=== PATIENT | female | born 1950 | race Caucasian/White ===

== ENCOUNTER 2019-10-28 08:38 | Outpatient (CLI) | payer OTHER, SELFPAY ==
--- NOTE | ~2019-10-28 | MM_ITS ---
EXAMINATION: MM screening beatriz BI w rosa HISTORY: Screening mammogram TECHNIQUE: Craniocaudal and mediolateral oblique 3-D tomosynthesis images were obtained and synthetic 2-D images were generated. CAD analysis was submitted and interpreted. COMPARISON: 10/25/2018, 10/20/2017, 10/14/2016 bilateral digital screening mammogram examinations BREAST PARENCHYMAL COMPOSITION: The breasts are almost entirely fatty. FINDINGS: There is no evidence of suspicious mass, calcification, or architectural distortion to sugg est malignancy in either breast. There has been no suspicious interval change. IMPRESSION: 1. No mammographic evidence of malignancy. 2. Recommend routine screening mammography in one year. BI-RADS Category 1: Negative Reviewed, dictated and finalized at location A. T PRESS OPERATOR
== END 2019-10-28 08:39 | disposition home or self-care (01) ==
LOC: ANHIMG 08:40
PROVIDERS: PCP Internal Medicine; Visit Provider Obstetrics & Gynecology
DX: Z12.31 Encounter for screening mammogram for malignant neoplasm of breast (principal)
CPT/HCPCS: 77063; 77067

== ENCOUNTER → 2020-12-24 14:07 | Outpatient (CLI) | payer OTHER, SELFPAY ==
--- NOTE | ~2020-12-24 | XR_ITS ---
EXAMINATION: XR knee LT 3V DATE: 12/24/2020 14:47 INDICATION: Left knee osteoarthritis. TECHNIQUE: 3 views of left knee were obtained. COMPARISON: None. FINDINGS: Bone alignment is normal. No fracture. There is mild tricompartmental osteoarthritis. There is a small knee joint effusion. IMPRESSION: 1. Mild left knee osteoarthritis. 2. Small left knee joint effusion. Reviewed, dictated and finalized at location A.
--- NOTE | ~2020-12-24 | XR_ITS ---
EXAMINATION: XR knee RT 3V DATE: 12/24/2020 14:46 INDICATION: Right knee osteoarthritis. TECHNIQUE: 3 views of right knee were obtained. COMPARISON: None. FINDINGS: Bone alignment is normal. No fracture. There is mild osteoarthritis of medial and patellofe moral compartments characterized by tiny marginal osteophytes. No knee joint effusion. IMPRESSION: 1. Mild right knee osteoarthritis. Reviewed, dictated and finalized at location A.
== END ==
PROVIDERS: PCP Internal Medicine; Visit Provider Internal Medicine
DX: M17.0 Bilateral primary osteoarthritis of knee (principal); M25.462 Effusion, left knee
CPT/HCPCS: 73562

== ENCOUNTER 2021-01-13 08:54 | Outpatient (CLI) | payer OTHER, SELFPAY ==
--- NOTE | ~2021-01-13 | MM_ITS ---
EXAMINATION: MM screening beatriz BI w rosa HISTORY: Screening mammogram TECHNIQUE: Craniocaudal and mediolateral oblique 3-D tomosynthesis images were obtained and synthetic 2-D images were generated. CAD analysis was submitted and interpreted. COMPARISON: 10/28/2019, 10/25/2018, 10/20/2017 bilateral digital screening mammogram examinations BREAST PARENCHYMAL COMPOSITION: There are scattered areas of fibroglandular density. FINDINGS: There is no evidence of suspicious mass, calcification, or architectural distortion to sugg est malignancy in either breast. There has been no suspicious interval change. IMPRESSION: 1. No mammographic evidence of malignancy. 2. Recommend routine screening mammography in one year. BI-RADS Category 1: Negative Reviewed, dictated and finalized at location A.
== END 2021-01-13 08:55 | disposition home or self-care (01) ==
LOC: ANHIMG 08:57
PROVIDERS: PCP Internal Medicine; Visit Provider Obstetrics & Gynecology
DX: Z12.31 Encounter for screening mammogram for malignant neoplasm of breast (principal)
CPT/HCPCS: 77063; 77067

== ENCOUNTER → 2021-10-08 08:52 | Outpatient (CLI) | payer OTHER, SELFPAY ==
[2021-10-08 16:27] LABS: Influenza A QL RT-PCR Negative (Negative); Influenza B QL RT-PCR Negative (Negative); SARS-CoV-2 RNA PCR Positive
== END ==
PROVIDERS: PCP Internal Medicine; Visit Provider Internal Medicine
DX: J06.9 Acute upper respiratory infection, unspecified (principal); U07.1 COVID-19
CPT/HCPCS: 87502; C9803; U0003; U0005

== ENCOUNTER 2022-06-29 08:27 | Outpatient (CLI) | payer OTHER, SELFPAY ==
--- NOTE | ~2022-06-29 | MM_ITS ---
EXAMINATION: MM screening beatriz BI w rosa HISTORY: Screening TECHNIQUE: Craniocaudal and mediolateral oblique 3-D tomosynthesis images were obtained and synthetic 2-D images were generated. CAD analysis was submitted and interpreted. COMPARISON: Comparison to multiple prior studies sequentially, with oldest reviewed study dated 10/12. BREAST PARENCHYMAL COMPOSITION: Breast composed of scattered areas of fibroglandular density FINDINGS: There is no evidence of suspicious mass, calcification, or architectural distortion to sugg est malignancy in either breast. There has been no suspicious interval change. IMPRESSION: 1. No mammographic evidence of malignancy. 2. Recommend routine screening mammography in one year. BI-RADS Category 1: Negative Reviewed, dictated and finalized at location A.
== END 2022-06-29 08:28 | disposition home or self-care (01) ==
PROVIDERS: PCP Internal Medicine; Visit Provider Obstetrics & Gynecology
DX: Z12.31 Encounter for screening mammogram for malignant neoplasm of breast (principal)
CPT/HCPCS: 77063; 77067

== ENCOUNTER 2024-05-24 09:59 | Outpatient (CLI) | payer OTHER, SELFPAY ==
--- NOTE | ~2024-05-24 | CT_ITS ---
Non-contrast Head CT History: Memory impairment Technique: Axial non-contrast imaging of the brain was performed. Dose reduction technique was used on this scan by utilizing automated exposure control and iterative reconstruction technique. The dose -length product (DLP) was 599.57 mGy-cm. Findings: There is an acute right cerebral convexity subdural hematoma measuring up to 5-6 mm in maxi mal thickness. No mass effect or midline shift. Suspected minimal late subacute to chronic left cereb ral convexity subdural hematoma. Brain parenchyma appears normal. The ventricles and subarachnoid sp aces are normal in size. The calvarium appears normal. The visualized paranasal sinuses and mastoid air cells are clear. Impression: Acute right cerebral convexity subdural hematoma measuring 5-6 mm in maximal thickness. Probable very small late subacute to possibly chronic left frontal convexity subdural hematoma. Case discussed with Dr. Scott at the time of this reading. Reviewed, dictated and finalized at [facility]. Impression: Acute right cerebral convexity subdural hematoma measuring 5-6 mm in maximal th ickness. Probable very small late subacute to possibly chronic left frontal convexity velarde bdural hematoma. Case discussed with Dr. Scott at the time of this reading.
== END 2024-05-24 10:00 | disposition home or self-care (01) ==
PROVIDERS: PCP Family Medicine; Visit Provider Family Medicine
DX: R41.3 Other amnesia (principal); E55.9 Vitamin D deficiency, unspecified; E78.5 Hyperlipidemia, unspecified; M19.90 Unspecified osteoarthritis, unspecified site; Z00.00 Encounter for general adult medical examination without abnormal findings; Z79.899 Other long term (current) drug therapy
CPT/HCPCS: 36415; 70450

== ENCOUNTER 2024-05-24 11:21 | Emergency (ER) | payer OTHER, SELFPAY ==
[2024-05-24] VITALS (7 sets, daily range): BP systolic 111–144; BP diastolic 61–88; PULSE 62–75; RESP 16–20; TEMP 36.1; O2SAT 95–97
--- NOTE | ~2024-05-24 | CT_ITS ---
EXAMINATION: CT brain wo con DATE: 05/24/2024 13:41 INDICATION: Subdural hematoma TECHNIQUE: Computed tomography (CT) of the head was performed without intravenous contrast. Sagittal and coronal reconstructions were performed. The mA was adjusted according to patient size. Iterative reconstruction technique was employed. The dose-length product was 605.33 mGy-cm. COMPARISON: head CT dated 05/24/2024 FINDINGS: No interval change in small bilateral frontal subdural hematomas likely acute on subacute or chronic with small amount of higher attenuation more recent blood dependently on the right and minimally on t he left. The right subdural hematoma measures up to 6 mm in maximal thickness in the left subdural he matoma measures up to 3 mm in thickness. No acute infarct. Ventricles are normal and symmetric. No ma ss/mass effect. Changes of bilateral intraocular lens replacement. The orbits, paranasal sinuses and mastoid air cells are normal. IMPRESSION: 1. No interval change in bilateral small frontal, likely acute on subacute or chronic subdural hemato mas. Reviewed, dictated and finalized at location A. IMPRESSION: 1. No interval change in bilateral small frontal, likely acute on subacute or c hronic subdural hematomas.
--- NOTE | ~2024-05-24 | XR_ITS ---
EXAMINATION: XR chest 1V portable 05/24/2024 12:09 INDICATION: Subdural hematoma PROCEDURE: AP portable chest COMPARISON: No prior studies for comparison. FINDINGS: The lungs are clear. The cardiomediastinal silhouette is within normal limits. There are no pleural effusions. There is no pneumothorax suspected. IMPRESSION: 1: NO ACUTE CARDIOPULMONARY DISEASE. Reviewed, dictated and finalized at location B.
[2024-05-24 12:01] LABS: Basophils Absolute Auto 0.1 K/mm3 (0.0-0.1); Basophils Percent Auto 1.4 % (0.2-1.2); Eosinophils Absolute Auto 0.1 K/mm3 (0-0.3); Eosinophils Percent Auto 1.8 % (0-4.4); Hematocrit 43.8 % (37.0-47.0); Hemoglobin 14.5 g/dL (12.0-15.0); Immature Granulocyte Absolute 0.02 K/mm3 (0.00-0.031); Immature Granulocyte Percent A 0.4 % (0-0.5); Lymphocytes Absolute Auto 1.14 K/mm3 (0.9-3.2); Lymphocytes Percent Auto 20.5 % (18.3-44.2); Mean Corpuscular HGB Conc 33.1 g/dl (32-36); Mean Corpuscular Hemoglobin 32.8 pg (26-34); Mean Corpuscular Volume 99.1 fl (80-100); Mean Platelet Volume 10.6 fl (7.4-10.4); Monocytes Absolute Auto 0.4 K/mm3 (0.1-0.6); Monocytes Percent Auto 7.2 % (2.6-8.5); Neutrophils Absolute Auto 3.8 K/mm3 (1.3-6.7); Neutrophils Percent Auto 68.7 % (45.5-73.1); Platelet Count Result 266 k/mm3 (150-375); Red Blood Count 4.42 M/mm3 (4.2-5.4); Red Cell Distribution Width 14.6 % (11.5-14.5); White Blood Count 5.6 K/mm3 (4.5-10.0)
[2024-05-24 12:13] LABS: Partial Thromboplastin Time 27.8 Seconds (22.3-36.8); Prothrombin Time 13.7 Seconds (11.1-14.7)
[2024-05-24 12:14] LABS: Alanine Aminotransferase 33 U/L (6-35); Albumin Level 4.2 g/dL (3.5-5.1); Alkaline Phosphatase 82 U/L (38-126); Anion Gap 9 mmol/L (4-12); Aspartate Amino Transferase 35 U/L (14-36); Bilirubin,Total 0.8 mg/dL (0.2-1.3); Blood Urea Nitrogen 13 mg/dL (7-17); Calcium 9.6 mg/dL (8.4-10.2); Carbon Dioxide 26 mmol/L (22-30); Chloride 102 mmol/L (98-107); Estimated CRCL calculation 54 ml/min; Estimated Glomerular Filt Rate > 60; Glucose 94 mg/dL (65-110); Potassium 4.2 mmol/L (3.4-5.0); Sodium 137 mmol/L (137-145)
[2024-05-24 12:25] LABS: Troponin I < 0.012 ng/mL (0.000-0.034)
--- NOTE | 2024-05-24 14:19 | PC.NURSE ---
[facility] accepted as ed to ed transfer [facility] accepted eta [id number] trip [id number]
--- NOTE | 2024-05-24 20:11 | ED.NEUROSD ---
HPI - Neuro Symptoms/Deficit General Chief Complaint: Neuro Symptoms/Deficit Stated Complaint: sent by pcp for CT scan brain Time Seen by Provider: 05/24/24 12:39 History of Present Illness HPI Narrative: this is a 73-year-old female with a past medical history significant for hypertension, memory issues being worked up for potential dementia. she presents today from her primary care referral for concerns of an outpatient CT scan that showed an acute subdural hematoma on the right side as well as the subacute subdural hematoma on the left side. patient is a very poor historian is not sure if she had any kind of injuries but does states she feels she fell or sustained some kind of head trauma recently. she does endorse drinking significant amounts of alcohol between 2 glasses of wine and a full bottle of wine occasionally at night. patient does not take any anticoagulation medications such as aspirin Plavix or other anticoagulation. she states that aside from some brain fog and some word-finding difficulty she has no headache right now, no nausea, vomiting, abdominal pain, weakness, fatigue, neurological complaints or sensory deficits. Has no obvious evidence of head trauma. Did not have any neck pain or difficulty with ranging of her neck. Related Data Home Medications Medication Instructions Recorded Confirmed omega-3 fatty acids 1,000 mg 1,000 mg PO DAILY 02/02/21 04/02/24 capsule (Fish Oil Concentrate) Allergies Allergy/AdvReac Type Severity Reaction Status Date / Time No Known Allergies Allergy Verified 04/02/24 10:02 Review of Systems Review of Systems: As reviewed above in HPI [facility] Past Medical History Medical History Allergic rhinitis Degenerative arthritis of knee, bilateral Nasal polyp Surgical History Surgical History History of repair of right rotator cuff 2016 Social History Social History Smoking packs per day: 1 Smoking cigarettes per day: 20.0 Years smoked: 30 Smoking pack-years: 30.00 Smoking status: Former smoker Tobacco type: cigarettes Second hand tobacco smoke exposure: No Smoking end date: 09/18/99 Alcohol intake: current Drinks per week: 8 Alcohol use details: wine Substance use: never Substance use type: does not use Lack of Transportation: No Lack of Food: Never True Current Housing: I Have Housing Concerned About Future Housing: No Difficulty Paying Gas/Electric Bills: No Difficulty Paying for Meds: No Currently Unemployed: No Education: Trade/Vocational Certificate Difficulty w/ Childcare or Family Care: No Exam Narrative: GENERAL: [Well-appearing, well-nourished, and in no acute distress.] HEAD: [Normocephalic, atraumatic.] EYES: [PERRLA and EOMI.] ENT: Nares clear, no rhinorrhea or epistaxis. Mucous membranes moist. NECK: Supple. CHEST: [Clear to auscultation. No respiratory distress.] HEART: [Regular rate and rhythm]. No murmur heard. [Normal peripheral pulses.] ABDOMEN: [Soft, nondistended], [nontender], [No rigidity or guarding] EXTREMITIES: Normal range of motion. [No edema.] SKIN: Warm, dry, no rash. NEURO: [No focal deficits]. Alert and oriented x2. normal motor function, normal sensation, no ataxia in the upper or lower extremities. States she has subjective word-finding difficulty but no other acute neurological complaints PSYCH: [Normal mood and affect.] Course Vital Signs Vital signs: Vital Signs Temperature 36.1 C L 05/24/24 11:26 Pulse Rate 72 05/24/24 11:26 Respiratory Rate 16 05/24/24 11:26 Blood Pressure 144/64 H 05/24/24 11:26 Pulse Oximetry 95 05/24/24 11:26 Oxygen Delivery Room Air 05/24/24 11:26 Temperature 36.1 C L 05/24/24 11:26 Pulse Rate 62 05/24/24 15:00 Respir
== END 2024-05-24 15:00 | disposition short-term general hospital (02) ==
PROVIDERS: Emergency Provider Student in an Organized Health Care Education/Training Program; PCP Family Medicine
DX: S06.5XAA Traumatic subdural hemorrhage with loss of consciousness status unknown, initial encounter (principal); I10 Essential (primary) hypertension; Z87.891 Personal history of nicotine dependence
CPT/HCPCS: 36415; 70450; 71045; 80053; 84484; 85025; 85610; 85730; 99291

== ENCOUNTER 2024-06-11 14:26 | Emergency (ER) | payer OTHER, SELFPAY ==
--- NOTE | ~2024-06-11 | CT_ITS ---
EXAMINATION: CT brain wo con DATE: 06/11/2024 14:54 INDICATION: Head injury. TECHNIQUE: Computed tomography (CT) of the head was performed without intravenous contrast. The mA wa s adjusted according to patient size. Iterative reconstruction technique was employed. The dose-lengt h product was 681.00 mGy-cm. COMPARISON: Head CT 05/24/2024 FINDINGS: There are bilateral frontoparietal subdural hematomas measuring up to 3 mm in thickness on the right and up to 4 mm in thickness on the left. There is no acute ischemic infarct or abnormal mas s lesion. The ventricles are normal in size. The paranasal sinuses are clear. There are likely change s of ocular lens replacement surgeries. The mastoid air cells are normal. IMPRESSION: 1. Bilateral frontoparietal subdural hematomas with improvement on the right. Reviewed, dictated and finalized at location A.
[2024-06-11 14:32] VITALS: BP 135/76; PULSE 74; RESP 16; TEMP 36.4; O2SAT 97
[2024-06-11 17:18] VITALS: BP 155/75; PULSE 84; RESP 16; O2SAT 98
--- NOTE | 2024-06-11 17:48 | ED.HEATRA ---
HPI - Head Injury General Chief complaint: Head Injury Stated complaint: Fall 2 days ago Time Seen by Provider: 06/11/24 17:12 Related Data Home Medications Medication Instructions Recorded Confirmed omega-3 fatty acids 1,000 mg 1,000 mg PO DAILY 02/02/21 04/02/24 capsule (Fish Oil Concentrate) Allergies Allergy/AdvReac Type Severity Reaction Status Date / Time No Known Allergies Allergy Verified 06/18/24 10:31 Review of Systems Review of Systems: All systems reviewed & are unremarkable except as noted in HPI and below PMFSH Past Medical History Medical History Allergic rhinitis Degenerative arthritis of knee, bilateral Nasal polyp Surgical History Surgical History History of repair of right rotator cuff 2016 Social History Social History Smoking packs per day: 1 Smoking cigarettes per day: 20.0 Years smoked: 30 Smoking pack-years: 30.00 Smoking status: Former smoker Tobacco type: cigarettes Second hand tobacco smoke exposure: No Smoking end date: 09/18/99 Alcohol intake: current Drinks per week: 8 Alcohol use details: wine Substance use: never Substance use type: does not use Lack of Transportation: No Lack of Food: Never True Current Housing: I Have Housing Concerned About Future Housing: No Difficulty Paying Gas/Electric Bills: No Difficulty Paying for Meds: No Currently Unemployed: No Education: Trade/Vocational Certificate Difficulty w/ Childcare or Family Care: No Exam Narrative: GENERAL: Well appearing, well-nourished, non-toxic, in no acute distress. HEAD: Normocephalic, atraumatic. NECK: Supple. No adenopathy, no masses. RESPIRATORY: Airway patent, respirations nonlabored. Clear to auscultation bilaterally, no rales, rhonchi, wheezing. CARDIOVASCULAR: Regular rate and rhythm without murmurs, rubs, or gallops. Peripheral pulses 2+ and equal bilaterally. ABDOMINAL: Soft, nontender, nondistended, no hepatosplenomegaly. Normoactive BS. MUSCULOSKELETAL: Moves all extremities. Strength/ROM intact without gross deformities. SKIN: Warm, dry, normal color. No rashes. NEURO: A&O X3. Speech clear. Cranial nerves II-XII grossly intact. No ataxic movements. PSYCHIATRIC: Appropriate mood and affect. Normal interaction. Course Vital Signs Vital signs: Vital Signs Temperature 36.4 C 06/11/24 14:32 Pulse Rate 74 06/11/24 14:32 Respiratory Rate 16 06/11/24 14:32 Blood Pressure 135/76 06/11/24 14:32 Pulse Oximetry 97 06/11/24 14:32 Temperature 36.4 C 06/11/24 14:32 Pulse Rate 84 06/11/24 17:18 Respiratory Rate 16 06/11/24 17:18 Blood Pressure 155/75 H 06/11/24 17:18 Pulse Oximetry 98 06/11/24 17:18 Discharge Plan Discharge Clinical Impression: Headache, Closed head injury Patient Disposition: Left Against Medical Advice Condition: Guarded Prognosis Instructions: Head Injury (ED) Prescriptions: No Action omega-3 fatty acids [Fish Oil Concentrate] 1,000 mg capsule 1,000 mg PO DAILY fluticasone propionate [Flonase Allergy Relief] 50 mcg/actuation spray,suspension 1 spray intranasal BID Qty: 16 3RF Rx Instructions: administer into each nostril donepezil 10 mg tablet 10 mg PO QHS Qty: 90 0RF ipratropium bromide 21 mcg (0.03 %) spray,non-aerosol 2 spray intranasal BID Qty: 30 0RF Rx Instructions: administer into each nostril amoxicillin-pot clavulanate 875-125 mg tablet 1 tablet PO BID Qty: 10 0RF prednisone 20 mg tablet 20 mg PO DAILY Qty: 5 0RF rosuvastatin 10 mg tablet See Rx Instructions .ROUTE .COMPLEX Qty: 90 1RF Dose Instruction: TAKE 1 TABLET BY MOUTH DAILY Rx Instructions: TAKE 1 TABLET BY MOUTH DAILY valacyclovir 1 gram tablet Se
--- NOTE | 2024-06-11 17:48 | ED.HEATRA ---
HPI - Head Injury General Chief complaint: Head Injury Stated complaint: Fall 2 days ago Time Seen by Provider: 06/11/24 17:12 Source: patient Mode of arrival: ambulatory Limitations: no limitations History of Present Illness HPI Narrative: Patient a 73-year-old female who presents to the ER after hitting her head 3-4 days ago. She reports she came in to this ER about a week ago after a head injury and was diagnosed with a bilateral subdural hematoma. Patient was transferred down to [place] ER, given anti epileptic medication, and discharged home. She reports she hit her head 3-4 days ago without loss of consciousness. Yesterday and today her head has felt heavy and sore, she endorses a ?minor headache.? She also endorses left eye heaviness, shortness but denies dizziness, nausea, vomiting or lightheadedness. Patient reports she was not seen by a neurosurgeon at [place] in the ER. She denies any other symptoms and reports she would like to go home. Related Data Home Medications Medication Instructions Recorded Confirmed omega-3 fatty acids 1,000 mg 1,000 mg PO DAILY 02/02/21 04/02/24 capsule (Fish Oil Concentrate) Allergies Allergy/AdvReac Type Severity Reaction Status Date / Time No Known Allergies Allergy Verified 06/18/24 10:31 [facility] Past Medical History Medical History Allergic rhinitis Degenerative arthritis of knee, bilateral Nasal polyp Surgical History Surgical History History of repair of right rotator cuff 2016 Social History Social History Smoking packs per day: 1 Smoking cigarettes per day: 20.0 Years smoked: 30 Smoking pack-years: 30.00 Smoking status: Former smoker Tobacco type: cigarettes Second hand tobacco smoke exposure: No Smoking end date: 09/18/99 Alcohol intake: current Drinks per week: 8 Alcohol use details: wine Substance use: never Substance use type: does not use Lack of Transportation: No Lack of Food: Never True Current Housing: I Have Housing Concerned About Future Housing: No Difficulty Paying Gas/Electric Bills: No Difficulty Paying for Meds: No Currently Unemployed: No Education: Trade/Vocational Certificate Difficulty w/ Childcare or Family Care: No Course Vital Signs Vital signs: Vital Signs Temperature 36.4 C 06/11/24 14:32 Pulse Rate 74 06/11/24 14:32 Respiratory Rate 16 06/11/24 14:32 Blood Pressure 135/76 06/11/24 14:32 Pulse Oximetry 97 06/11/24 14:32 Temperature 36.4 C 06/11/24 14:32 Pulse Rate 84 06/11/24 17:18 Respiratory Rate 16 06/11/24 17:18 Blood Pressure 155/75 H 06/11/24 17:18 Pulse Oximetry 98 06/11/24 17:18 MDM - Head Injury MDM Narrative Medical decision making narrative: Patient a 73-year-old female who presents to the ER after hitting her head 3-4 days ago. She reports she came in to this ER about a week ago after a head injury and was diagnosed with a bilateral subdural hematoma. Patient was transferred down to [place] ER, given anti epileptic medication, and discharged home. She reports she hit her head 3-4 days ago without loss of consciousness. Yesterday and today her head has felt heavy and sore, she endorses a ?minor headache.? She also endorses left eye heaviness, shortness but denies dizziness, nausea, vomiting or lightheadedness. Patient reports she was not seen by a neurosurgeon at [facility] in the ER. She denies any other symptoms and reports she would like to go home. 0-phone call placed to [facility] access for guidance on pt's care. 1899-Phone call has been placed to [facility] access line x 4 with no response. Pt verbalized she is leaving whether she's discharged or not. She is A&O x4. NURSING SPECIALIST explained to patient that she would need to leave against medical adv
== END 2024-06-11 19:13 | disposition left against medical advice (07) ==
LOC: ANHED 17:27
PROVIDERS: Emergency Provider Registered Nurse; PCP Family Medicine
DX: S09.90XA Unspecified injury of head, initial encounter (principal); M17.0 Bilateral primary osteoarthritis of knee; Z87.891 Personal history of nicotine dependence; W22.8XXA Striking against or struck by other objects, initial encounter
CPT/HCPCS: 70450; 99284

== ENCOUNTER 2025-07-23 01:30 | Day surgery (SDC) | payer OTHER, SELFPAY ==
--- OUTSIDE RECORDS SUMMARY | 2007-05-14 07:13 | XMS_ITS | Continuity of Care Document ---
Author Organization [facility] Address [address] [place] [address] Phone Care Team Providers Care Camera Operator Name Role Phone Robin Ramsay Unavailable Unavailable Procedures Procedure Date Office/outpatient Visit, Est Ophthalmoscopy, Subsequent Post-op Follow-up Visit Ophthalmoscopy, Subsequent Office Consultation Ophthalmoscopy Treatment Of Retina Advance Directives Directive Yes / No Effective Date File Name No Information Encounters Encounter Description Practice Location Reason(s) For Visit Diagnoses Date Provider Providers Copied on Encounter Office/outpati ent Visit, [facility] [address] [place] [address] [address], [place], [place], [id number], [place] tel:[phone] [facility] No Information Apr-2 7-200 7 Devendra Kelly. [address] [place], [place], [facility], [place]. tel:[phone] [facility], [address] [place] [address] [address], [place], [place], [id number], [place] tel:[phone] [facility] No Information Apr-1 3-200 7 Devendra Kelly. [address] [place], [address], [place]. tel:[phone] Office Consultation [facility], [address] [place] [address] [address], [place], [place], [id number], [place] tel:[phone] [facility] No Information Aug-0 6-200 7 Devendra Kelly. [address] [place], [address], [place]. tel:[phone] Referring Provider: Jus Bhandari OD, [address] [facility], [place], [address]. tel:[phone] Family History Family Member Type Diagnosis Age At Onset No Information Payers Payer name Insurance type Covered alliance party ID Authoriza tion(s) No Information Social History Type Description Quantity Date Captured Comments Sex Female Smoking Status No Information Chief Complaint And Reason For Visit No Information Reason For Referral Reason For Referral No Information History Of Present Illness Encounter Date Complaint History Of Prese nt Illness No Information Functional Status Date Functional Assessmen t No Information Instructions Date Instruction Additional Infor mation No Information Assessments Type Assessment Date No Information Patient Care Teams Name Effective Dates (start - stop) Status Members No Information
[2025-07-15 11:39] VITALS: BMI 26.3
[2025-07-23 08:15] VITALS: BP 111/74; PULSE 64; RESP 16; TEMP 36.6; O2SAT 96; BMI 26.4
[2025-07-23] MEDS: LACTATED RINGERS 1,000 ML 150 ML IV CONT (08:18)
--- NOTE | 2025-07-23 09:38 | PM.IMHP ---
H&P: HPI History of Present Illness Date/Time: 07/23/25 09:38 Chief Complaint: GERD Narrative: The patient has a longstanding history of heartburn, and has been having intermittent episodes of chest pressure. She is referred for EGD to rule out GERD. Review of Systems Review of Systems: All systems reviewed & are unremarkable except as noted in HPI and below PMFSH Past Medical History Medical History Nasal polyp Allergic rhinitis Degenerative arthritis of knee, bilateral Surgical History Surgical History History of repair of right rotator cuff 2016 Social History Social History Smoking packs per day: 1 Smoking cigarettes per day: 20.0 Years smoked: 30 Smoking pack-years: 30.00 Smoking status: Former smoker Tobacco type: cigarettes Second hand tobacco smoke exposure: No Smoking end date: 09/18/99 Alcohol intake: current Drinks per week: 8 Alcohol use details: wine Substance use: never Substance use type: does not use Lack of Transportation: No Lack of Food: Never True Current Housing: I Have Housing Concerned About Future Housing: No Difficulty Paying Gas/Electric Bills: No Difficulty Paying for Meds: No Currently Unemployed: No Education: Trade/Vocational Certificate Difficulty w/ Childcare or Family Care: No Living arrangements: with family Spiritual care concerns: No Meds Home Medications and Allergies Home Medications ?Medication ?Instructions ?Recorded ?Confirmed ?Type fluticasone propionate 50 See Rx Instructions .Route 09/24/24 07/23/25 Rx mcg/actuation nasal .COMPLEX #48 mL spray,suspension ipratropium bromide 21 mcg (0.03 See Rx Instructions .Route 12/10/24 07/23/25 Rx %) nasal spray .COMPLEX 90 days #30 mL rosuvastatin 10 mg tablet See Rx Instructions .Route 02/11/25 07/23/25 Rx .COMPLEX #90 tabs donepezil 10 mg tablet See Rx Instructions .Route 02/12/25 07/23/25 Rx .COMPLEX #90 tabs semaglutide (weight loss) 0.25 0.25 mg (0.5 mL) subcut WEEKLY #2 06/10/25 07/23/25 Rx mg/0.5 mL subcutaneous pen mL injector (Imani) fexofenadine 180 mg tablet 180 mg PO DAILY #90 tabs 07/03/25 07/23/25 Rx (Debora Allergy) memantine 5 mg tablet See Rx Instructions .Route 07/10/25 07/23/25 Rx .COMPLEX #180 tabs cholecalciferol (vitamin D3) 50 50 mcg PO DAILY 07/15/25 07/23/25 History mcg (2,000 unit) tablet (D3 DOTS) multivitamin (Daily Multi-Vitamin 1 tablet PO DAILY 07/15/25 07/23/25 History tablet) potassium 20 mg chewable tablet 20 mg PO DAILY 07/15/25 07/23/25 History turmeric 400 mg capsule 400 mg PO DAILY 07/15/25 07/23/25 History Allergies Allergy/AdvReac Type Severity Reaction Status Date / Time No Known Allergies Allergy Verified 07/23/25 08:12 Vital Signs Vital Signs - 24 hr 07/23/25 08:15 Temperature 97.8 F Pulse Rate 64 Respiratory Rate 16 Blood Pressure 111/74 Pulse Oximetry 96 Oxygen Delivery Room Air Exam Const: General: cooperative and healthy appearing Resp: Effort & Inspection: normal respiratory effort and able to speak in complete sentences Auscultation: clear to auscultation bilaterally Cardio: Rate: regular rate Rhythm: regular rhythm GI: Inspection: normal to inspection GI Palp: No No hepatosplenomegaly present Auscultation: normal bowel sounds Rectal Exam: deferred Skin: General skin exam: normal color Psych: Appearance: grossly normal Mental Status: mental status grossly normal Assessment and Plan Assessment and plan (1) GERD (gastroesophageal reflux disease): Code(s): K21.9 - Gastro-esophageal reflux disease without esophagitis Status: Acute Assessment and Plan: The patient is deemed a good candidate for the procedure. Consent signed. Will proceed.
--- NOTE | 2025-07-23 09:56 | S_PTH ---
PATIENT: Ashli Preciado LOC: [facility]#:[id number] AGE/SX: 74/F ROOM: RE07/23/[address]: Martin Overton MD : 1950 BED: DIS: 07/23/2025 SPEC #: [id number] RECD: 07/23/25 11:28 STATUS: CARISSA REQ #: [id number] WYATT: 07/23/25 09:[address]: Martin Overton DEPT: [facility] [place] Surgical RECD BY: Dorene Verduzco ENTERED: 07/23/25 11:29 SP TYPE: Surgical OTHR DR: Wilver Scott MD Tissues: A - Gastric Biopsy B - Gastric Biopsy Procedures: Hematoxylin and Eosin Stain Gross and Microscopic Level 4
[2025-07-23 09:58] VITALS: BP 96/74; PULSE 68; RESP 21; O2SAT 98
[2025-07-23 10:09] VITALS: BP 96/55; PULSE 67; RESP 19; O2SAT 98
[2025-07-23 10:19] VITALS: BP 125/68; PULSE 62; RESP 20; O2SAT 98
--- NOTE | 2025-07-25 09:45 | WPDANESEPPF ---
Anes - Initial Pre Proc Eval Procedure: Operation Date: 07/23/25 09:30 Proposed Procedures p Esophagogastroduodenoscopy EGD - Martin Overton MD Date/Time: 07/25/25 09:45 Surgeon: Martin Overton MD Pre Op Diagnosis: Gastric ulcer, unspecified as acute or chronic Patient Data Age: 74 Gender: F Height: 1.65 m Weight: 71.9 kg Last Vital Signs Temp 36.6 C 07/23/25 08:15 Pulse 62 07/23/25 10:19 Resp 20 07/23/25 10:19 BP 125/68 07/23/25 10:19 Pulse Ox 98 07/23/25 10:19 O2 Del Method Room Air 07/23/25 10:19 Allergies Allergy/AdvReac Type Severity Reaction Status Date / Time No Known Allergies Allergy Verified 07/23/25 08:12 Home Medications ?Medication ?Instructions ?Recorded ?Confirmed ?Type fluticasone propionate 50 See Rx Instructions .Route 09/24/24 07/23/25 Rx mcg/actuation nasal .COMPLEX #48 mL spray,suspension ipratropium bromide 21 mcg (0.03 See Rx Instructions .Route 12/10/24 07/23/25 Rx %) nasal spray .COMPLEX 90 days #30 mL rosuvastatin 10 mg tablet See Rx Instructions .Route 02/11/25 07/23/25 Rx .COMPLEX #90 tabs donepezil 10 mg tablet See Rx Instructions .Route 02/12/25 07/23/25 Rx .COMPLEX #90 tabs semaglutide (weight loss) 0.25 0.25 mg (0.5 mL) subcut WEEKLY #2 06/10/25 07/23/25 Rx mg/0.5 mL subcutaneous pen mL injector (Wegovy) fexofenadine 180 mg tablet 180 mg PO DAILY #90 tabs 07/03/25 07/23/25 Rx (Debora Allergy) memantine 5 mg tablet See Rx Instructions .Route 07/10/25 07/23/25 Rx .COMPLEX #180 tabs cholecalciferol (vitamin D3) 50 50 mcg PO DAILY 07/15/25 07/23/25 History mcg (2,000 unit) tablet (D3 DOTS) multivitamin (Daily Multi-Vitamin 1 tablet PO DAILY 07/15/25 07/23/25 History tablet) potassium 20 mg chewable tablet 20 mg PO DAILY 07/15/25 07/23/25 History turmeric 400 mg capsule 400 mg PO DAILY 07/15/25 07/23/25 History Patient hx anesthesia problems: none Family hx anesthesia problems: none Results Review: All pre-operative results and documents have been reviewed as part of the pre-operative evaluation. PMFSH Past Medical History Medical History Nasal polyp Allergic rhinitis Degenerative arthritis of knee, bilateral Surgical History Surgical History History of repair of right rotator cuff 2016 Social History Social History Smoking packs per day: 1 Smoking cigarettes per day: 20.0 Years smoked: 30 Smoking pack-years: 30.00 Smoking status: Former smoker Tobacco type: cigarettes Second hand tobacco smoke exposure: No Smoking end date: 09/18/99 Alcohol intake: current Drinks per week: 8 Alcohol use details: wine Substance use: never Substance use type: does not use Lack of Transportation: No Lack of Food: Never True Current Housing: I Have Housing Concerned About Future Housing: No Difficulty Paying Gas/Electric Bills: No Difficulty Paying for Meds: No Currently Unemployed: No Education: Trade/Vocational Certificate Difficulty w/ Childcare or Family Care: No Living arrangements: with family Spiritual care concerns: No Anes - Eval Final PreProcedure Day of Procedure 07/25/25 09:45 Patient weight: overweight Heart: regular rate and rhythm Lungs: clear to auscultation Airway: Mallampati scale class II Neurological: alert and oriented Last oral intake: >/= 8 hours ASA classification: II Emergent: no Anesthetic plan: proceed Anesthesia type and monitoring: general GIVS and standard monitoring Results Review: All pre-operative results and documents have been reviewed as part of the pre-operative evaluation. Informed Consent: The patient's anesthetic plan and its attendant risks and benefits were discussed with the patient/family/POA. Questions were solicited and answers provided to the satisfaction of the patient/family/POA.
== END 2025-07-23 10:30 | disposition home or self-care (01) ==
PROVIDERS: PCP Family Medicine; Referring Provider Family Medicine; Visit Provider Internal Medicine Gastroenterology
PROC: 0DJ08ZZ Inspection of Upper Intestinal Tract, Via Natural or Artificial Opening Endoscopic (ICD-10-PCS; CPT 43239; principal; 2025-07-23 09:30)
DX: K21.9 Gastro-esophageal reflux disease without esophagitis (principal); K22.5 Diverticulum of esophagus, acquired; K29.70 Gastritis, unspecified, without bleeding; M17.0 Bilateral primary osteoarthritis of knee; Z79.85 Long-term (current) use of injectable non-insulin antidiabetic drugs; Z98.890 Other specified postprocedural states; Z87.891 Personal history of nicotine dependence
CPT/HCPCS: 43239; 88305; J2704; J7120

== ENCOUNTER 2025-07-28 14:34 | Outpatient (CLI) | payer OTHER, SELFPAY ==
--- NOTE | ~2025-07-28 | DEXA_ITS ---
Bone Density Report Name: MARIA GUADALUPE PLASENCIA Age: 74 Sex: Female Ethnicity: White Date of : 1950 Indication: postmenopausal; screening for osteoporosis; Referring Provider: DILSHAD KNOWLES Study: Bone densitometry was performed. Exam Date: July 28, 2025 Accession number: [id number] Bone Density: Region BMD T-score Z-score Classification AP Spine(L1-L4) 0.965 -0.7 1.7 Normal Femoral Neck (Left) 0.645 -1.8 0.3 Osteopenia Total Hip (Left) 0.808 -1.1 0.8 Osteopenia Femoral Neck (Right) 0.600 -2.2 -0.1 Osteopenia Total Hip (Right) 0.790 -1.2 0.6 Osteopenia Total Hip Mean 0.799 -1.2 0.7 Osteopenia World Health Organization criteria for BMD impression classify patients as: Normal (T-score at or above -1.0), Osteopenia (T-score between -1.0 and -2.5), or Osteoporosis (T-score at or below -2.5). 10-year Fracture Risk(1): Major Osteoporotic Fracture 15% Hip Fracture 4.2% Reported Risk Factors: [place] (), Neck BMD=0.600, BMI=26.7 (1) FRAX(R) Version 3.08. Fracture probability calculated for an untreated patient. Fracture probability may be lower if the patient has received treatment. Clinical Information Provided by Patient: Has used the following medications: Vitamin D, Calcium Patient maximum height was 65 Menopause Age: 50 No regular weight bearing exercise Drinks caffeinated beverages Onset of menses at age 11 Number of children 1 Impression: The patient has low bone mass, based on the Right Femoral Neck T-score. The patient has an estimated ten-year risk of hip fracture of 4.2% and an estimated ten-year risk of major fracture of 15%, based on the WHO FRAX algorithm. Discussion: BONE DENSITY IS LOW AT ONE OR MORE SKELETAL SITES. THE PATIENT'S BMD AND CLINICAL RISK FACTORS CONTRIBUTE TO THIS PATIENT'S INCREASED RISK OF FRACTURE. This patient's lowest T-score is low at one or more skeletal sites. It meets the World Health Organization's (WHO) criteria for ?low bone mass? (T-score between -1.0 and -2.5). The patient's 10-year risk of hip fracture as calculated by FRAX exceeds the threshold where pharmacological therapy is recommended by the National Osteoporosis Foundation (NOF). However, all treatment decisions require clinical judgment and consideration of individual patient factors, including patient preferences, comorbidities, previous drug use, risk factors not captured in the FRAX model (e.g., frailty, falls, vitamin D deficiency, increased bone turnover, interval significant decline in bone density) and possible under or overestimation of fracture risk by FRAX. The patient should follow a healthful lifestyle (good nutrition with adequate calcium and vitamin D, and appropriate weight-bearing exercise). Follow-Up: Consider a repeat BMD and Vertebral Fracture Assessment (VFA) exam in 2 years or sooner if medically necessary, to reassess this patient's status. Reported by: ZHEN on 07/28/2025 2:56:00 PM. Reviewed, dictated and finalized at location A.
== END 2025-07-28 14:35 | disposition home or self-care (01) ==
LOC: MICIMG 14:35
PROVIDERS: PCP Family Medicine; Visit Provider Family Medicine
DX: M85.89 Other specified disorders of bone density and structure, multiple sites (principal); Z78.0 Asymptomatic menopausal state; Z13.820 Encounter for screening for osteoporosis
CPT/HCPCS: 77080